=== PATIENT | male | born 1950 | race African-American/Black ===

== ENCOUNTER 2016-10-30 07:49 | Outpatient (CLI) | payer MEDICARE, OTHER ==
[2016-10-30 11:10] LABS: ALT (SGPT) 16 U/L (0-55); AST (SGOT) 11 U/L (5-34); Albumin 4.6 g/dL (3.4-4.8); Alkaline Phosphatase 87 U/L (40-150); Anion Gap 17 mmol/L (10-20); BUN (Urea Nitrogen) 22 mg/dL (8.4-25.7); Bilirubin, Total 0.3 mg/dL (0.2-1.2); Calc. Creatinine Clearance 0 mL/min (70-130); Calcium 9.4 mg/dL (7.8-10.44); Carbon Dioxide 20 mmol/L (23-31); Cardiac Risk 6.6 (Less than 4.5); Chloride 108 mmol/L (98-107); Cholesterol 152 mg/dL (< 200 Desired); Estimated GFR-MDRD 70; Globulin 2.7 g/dL (2.4-3.5); Glucose 151 mg/dL (80-115); HDL Cholesterol 23 mg/dL (>60 Neg Risk); LDL Cholesterol, Calculated 86 mg/dL; Protein, Total 7.3 g/dL (5.8-8.1); Sodium 141 mmol/L (136-145); Triglycerides 216 mg/dL (Less than 150); Uric Acid 8.3 mg/dL (3.5-7.2)
== END 2016-10-30 07:50 ==
LOC: MADLABBHPM 07:49
PROVIDERS: ATTEND Family Medicine
DX: E78.2 Mixed hyperlipidemia (principal); M10.00 Idiopathic gout, unspecified site; I10 Essential (primary) hypertension
CPT/HCPCS: 36415; 80053; 80061; 84550

== ENCOUNTER 2017-02-01 09:16 | Outpatient (CLI) | payer MEDICARE ==
[2017-02-01 10:22] LABS: ALT (SGPT) 19 U/L (8-55); AST (SGOT) 15 U/L (5-34); Albumin 4.3 g/dL (3.4-4.8); Alkaline Phosphatase 100 U/L (40-150); Anion Gap 16 mmol/L (10-20); BUN (Urea Nitrogen) 16 mg/dL (8.4-25.7); Bilirubin, Total 0.3 mg/dL (0.2-1.2); Calc. Creatinine Clearance 0 mL/min (70-130); Calcium 9.8 mg/dL (7.8-10.44); Carbon Dioxide 22 mmol/L (23-31); Cardiac Risk 6.3 (Less than 4.5); Chloride 107 mmol/L (98-107); Cholesterol 150 mg/dl (< 200 Desired); Estimated GFR-MDRD 79; Globulin 3.3 g/dL (2.4-3.5); Glucose 166 mg/dL (80-115); HDL Cholesterol 24 mg/dL (>60 Neg Risk); LDL Cholesterol, Calculated 74 mg/dL; Magnesium 1.8 mg/dL (1.6-2.6); Potassium 3.9 mmol/L (3.5-5.1); Protein, Total 7.6 g/dL (5.8-8.1); Sodium 141 mmol/L (136-145); Triglycerides 260 mg/dL (Less than 150)
== END 2017-02-01 09:17 | disposition home or self-care (01) ==
LOC: MADLABBHPM 09:16
PROVIDERS: ATTEND Family Medicine
DX: E78.2 Mixed hyperlipidemia (principal); E83.42 Hypomagnesemia
CPT/HCPCS: 36415; 80053; 80061; 83735; 84550

== ENCOUNTER 2017-07-10 00:09 | Emergency (ER) | payer MEDICARE ==
[2017-07-10] MEDS ORDERED: Nitroglycerin 0.4 MG TAB 1 EACH ONE (00:32)
[2017-07-10] MEDS ORDERED: Aspirin 325 MG TAB ONE (00:32)
[2017-07-10 00:52] LABS: PTT 25.3 SEC (22.9-36.1); Prothrombin Time 13.4 SEC (12.0-14.7)
[2017-07-10 01:08] LABS: CKMB 1.9 ng/mL (0-6.6); Troponin I Less than 0.010 ng/mL (< 0.028)
[2017-07-10 01:09] LABS: ALT (SGPT) 17 U/L (8-55); AST (SGOT) 15 U/L (5-34); Albumin 4.5 g/dL (3.4-4.8); Alkaline Phosphatase 130 U/L (40-150); Anion Gap 22 mmol/L (10-20); BUN (Urea Nitrogen) 17 mg/dL (8.4-25.7); Bilirubin, Total 0.2 mg/dL (0.2-1.2); CK (CPK) 231 U/L (30-200); Calc. Creatinine Clearance 0 mL/min (70-130); Calcium 9.3 mg/dL (7.8-10.44); Carbon Dioxide 18 mmol/L (23-31); Chloride 106 mmol/L (98-107); Estimated GFR-MDRD 71; Globulin 3.3 g/dL (2.4-3.5); Glucose 221 mg/dL (80-115); Magnesium 2.2 mg/dL (1.6-2.6); Potassium 4.4 mmol/L (3.5-5.1); Protein, Total 7.8 g/dL (5.8-8.1); Sodium 142 mmol/L (136-145)
[2017-07-10 01:24] LABS: #Basophils 0.1 thou/uL (0.0-0.2); #Eosinphils 0.2 thou/uL (0.0-0.7); #Lymphocytes 2.4 thou/uL (1.20-3.40); #Monocytes 0.6 thou/uL (0.11-0.59); #Neutrophils 3.2 thou/uL (1.40-6.50); %Eosinophils 3.1 % (0.0-10.0); %Lymphocytes 36.3 % (21.0-51.0); %Monocytes 8.9 % (0.0-10.0); %Neutrophils 49.7 % (42.0-75.0); Anisocytosis SLIGHT = 6-15 cells (100X) (0-5/hpf); Hemoglobin 14.5 g/dL (14.0-18.0); Hypochromia SLIGHT = 6-15 cells (100X) (0-5/hpf); MDiff Complete? YES; Mean Corpuscular HGB CONC 31.1 g/dL (32.0-36.0); Mean Corpuscular Hemoglobin 23.9 pg (27.0-31.0); Mean Corpuscular Volume 76.9 fl (80.0-94.0); Mean Platelet Volume 10.2 fL (7.4-10.4); Microcytosis SLIGHT = 6-15 cells (100X) (0-5/hpf); PLT Morphology Comment Appears Adequate; Platelet Count 230 thou/uL (130-400); Poikilocytosis SLIGHT = 6-15 cells (100X) (0-5/hpf); RBC Distribution Width 15.7 % (11.5-14.5); RBC Morphology Abnormal; Red Blood Cell (RBC) Count 6.05 mill/uL (4.70-6.10); White Blood Cell (WBC) Count 6.5 thou/uL (4.8-10.8)
--- NOTE | 2017-07-10 07:50 | RAD ---
CHEST 1 VIEW: Date: 07/10/17 HISTORY: Dyspnea. Follow-up. COMPARISON: 07/18/15. FINDINGS: Cardiac silhouette is magnified and enlarged. Pulmonary vasculature remains engorged with patchy bila teral perihilar and bibasilar infiltrates. Mediastinum is midline. Upper lobes are clear. No evidence of pneumothorax. IMPRESSION: Radiographic appearance of CHF is similar in appearance to the prior exam. POS: [facility]
== END 2017-07-10 01:45 | disposition short-term general hospital (02) ==
LOC: MADERS 00:09
DX: I20.0 Unstable angina (principal); E11.9 Type 2 diabetes mellitus without complications; I10 Essential (primary) hypertension; J44.9 Chronic obstructive pulmonary disease, unspecified; E78.5 Hyperlipidemia, unspecified; Z79.4 Long term (current) use of insulin; Z79.899 Other long term (current) drug therapy; Z86.73 Personal history of transient ischemic attack (TIA), and cerebral infarction without residual deficits
CPT/HCPCS: 71045; 80053; 82550; 82553; 83735; 83880; 84484; 85025; 85610; 85730; 93005; 94760

== ENCOUNTER 2017-11-09 17:39 | Emergency (ER) | payer MEDICARE | END 2017-11-09 20:21 | disposition home or self-care (01) | LOC: MADERS 17:39 | DX: J30.1 Allergic rhinitis due to pollen (principal); G47.30 Sleep apnea, unspecified; E11.9 Type 2 diabetes mellitus without complications; E78.5 Hyperlipidemia, unspecified; I10 Essential (primary) hypertension; J44.9 Chronic obstructive pulmonary disease, unspecified; Z86.73 Personal history of transient ischemic attack (TIA), and cerebral infarction without residual deficits; Z79.02 Long term (current) use of antithrombotics/antiplatelets; Z79.82 Long term (current) use of aspirin; Z79.899 Other long term (current) drug therapy; Z79.84 Long term (current) use of oral hypoglycemic drugs | CPT/HCPCS: 96372; J1040 ==

== ENCOUNTER 2017-12-16 17:35 | Emergency (ER) | payer MEDICARE ==
[2017-12-16] MEDS ORDERED: Benzonatate 100 MG CAP ONE (18:05)
[2017-12-16] MEDS ORDERED: Amoxicillin/Potassium Clav 875 MG TAB ONE (18:05)
[2017-12-16] MEDS ORDERED: Dexamethasone 4 MG TAB ONE (18:05)
[2017-12-16] MEDS ORDERED: Dexamethasone 4 mg/ml Vial ONE (18:05)
--- NOTE | 2017-12-16 18:28 | RAD ---
CHEST TWO VIEWS: 12/16/2017 HISTORY: Cough. COMPARISON: 07/09/2012 FINDINGS: There is mild pulmonary vascular congestion and interstitial prominence, similar when compared to the prior exam. There is no pneumothorax or pleural fluid, and no focal consolidation or alveolar edema . The cardiac silhouette demonstrates stable prominence. IMPRESSION: No significant interval change. POS: [facility]
== END 2017-12-16 18:30 | disposition home or self-care (01) ==
LOC: MADERS 17:35
DX: J04.10 Acute tracheitis without obstruction (principal); E11.9 Type 2 diabetes mellitus without complications; E78.5 Hyperlipidemia, unspecified; I10 Essential (primary) hypertension; Z86.73 Personal history of transient ischemic attack (TIA), and cerebral infarction without residual deficits; J44.9 Chronic obstructive pulmonary disease, unspecified; Z79.899 Other long term (current) drug therapy; Z79.84 Long term (current) use of oral hypoglycemic drugs
CPT/HCPCS: 71046; J1100; J8540

== ENCOUNTER 2018-02-18 12:31 | Outpatient (CLI) | payer MEDICARE ==
[2018-02-18 13:51] LABS: ALT (SGPT) 16 U/L (8-55); AST (SGOT) 15 U/L (5-34); Albumin 4.6 g/dL (3.4-4.8); Alkaline Phosphatase 116 U/L (40-150); Anion Gap 16 mmol/L (10-20); BUN (Urea Nitrogen) 18 mg/dL (8.4-25.7); Bilirubin, Total 0.4 mg/dL (0.2-1.2); Calc. Creatinine Clearance 0 mL/min (70-130); Calcium 9.6 mg/dL (7.8-10.44); Carbon Dioxide 21 mmol/L (23-31); Cardiac Risk 4.9 (Less than 4.5); Chloride 109 mmol/L (98-107); Cholesterol 113 mg/dl (< 200 Desired); Estimated GFR-MDRD 79; Globulin 2.6 g/dL (2.4-3.5); Glucose 164 mg/dL (80-115); HDL Cholesterol 23 mg/dL (>60 Neg Risk); LDL Cholesterol, Calculated 57 mg/dL; Magnesium 2.3 mg/dL (1.6-2.6); Potassium 3.9 mmol/L (3.5-5.1); Protein, Total 7.2 g/dL (5.8-8.1); Sodium 142 mmol/L (136-145); Triglycerides 166 mg/dL (Less than 150); Uric Acid 7.4 mg/dL (3.5-7.2)
[2018-02-18 17:42] LABS: Free T4 (Free Thyroxine) 1.1 ng/dL (0.70-1.48)
== END 2018-02-18 12:32 | disposition home or self-care (01) ==
LOC: MADLABBHPM 12:31
PROVIDERS: ATTEND Family Medicine
DX: E78.2 Mixed hyperlipidemia (principal); I10 Essential (primary) hypertension; E79.0 Hyperuricemia without signs of inflammatory arthritis and tophaceous disease; E83.42 Hypomagnesemia
CPT/HCPCS: 36415; 80053; 80061; 83735; 84439; 84443; 84550

== ENCOUNTER 2018-02-24 14:43 | Emergency (ER) | payer MEDICARE ==
[2018-02-24] MEDS ORDERED: Benzonatate 100 MG CAP ONE (15:35)
[2018-02-24] MEDS ORDERED: Dexamethasone 4 MG TAB ONE (15:35)
== END 2018-02-24 16:00 | disposition home or self-care (01) ==
LOC: MADERS 14:43
DX: T78.40XA Allergy, unspecified, initial encounter (principal); R05 Cough; E11.9 Type 2 diabetes mellitus without complications; I10 Essential (primary) hypertension; I25.10 Atherosclerotic heart disease of native coronary artery without angina pectoris; E78.5 Hyperlipidemia, unspecified; J44.9 Chronic obstructive pulmonary disease, unspecified; G47.30 Sleep apnea, unspecified; Z86.73 Personal history of transient ischemic attack (TIA), and cerebral infarction without residual deficits; Z79.84 Long term (current) use of oral hypoglycemic drugs; Z79.899 Other long term (current) drug therapy; Z79.891 Long term (current) use of opiate analgesic
CPT/HCPCS: 99283; J8540

== ENCOUNTER 2018-03-01 14:51 | Emergency (ER) | payer MEDICARE ==
[2018-03-01] MEDS ORDERED: Phenergan/Codeine 10-6.25mg/5ml UDCUP ONE (15:17)
[2018-03-01] MEDS ORDERED: methylPREDNISolone Sod Succ/PF 125 MG/2 ML VIAL ONE (15:17)
[2018-03-01] MEDS ORDERED: Benzonatate 100 MG CAP ONE (15:17)
[2018-03-01] MEDS ORDERED: Sterile Water 10 ML ONE (15:18)
[2018-03-01] MEDS ORDERED: Amoxicillin/Potassium Clav 875 MG TAB ONE (15:32)
--- NOTE | 2018-03-01 15:41 | RAD ---
PORTABLE AP CHEST X-RAY 03/01/18 HISTORY: Cough. COMPARISON: 07/10/17. FINDINGS: The cardiac silhouette is magnified by projection but is stable in size from prior study. Pulmonary v asculature does appear to be within normal limits. Due to overlying soft tissue density, the left josefa g base is not well evaluated, but the lungs are otherwise clear. No other interval change. IMPRESSION: Suboptimal evaluation left lung base, but there is otherwise no acute cardiopulmonary process. POS: [facility]
== END 2018-03-01 15:39 | disposition home or self-care (01) ==
LOC: MADERS 14:51
DX: J20.9 Acute bronchitis, unspecified (principal); G47.30 Sleep apnea, unspecified; E78.5 Hyperlipidemia, unspecified; I10 Essential (primary) hypertension; J44.9 Chronic obstructive pulmonary disease, unspecified; Z86.73 Personal history of transient ischemic attack (TIA), and cerebral infarction without residual deficits; Z79.891 Long term (current) use of opiate analgesic; Z79.899 Other long term (current) drug therapy
CPT/HCPCS: 71045; 96372; A4216; J2930

== ENCOUNTER 2018-04-24 13:02 | Emergency (ER) | payer MEDICARE | END 2018-04-24 13:45 | disposition home or self-care (01) | LOC: MADERS 13:02 | DX: J45.909 Unspecified asthma, uncomplicated (principal); E11.9 Type 2 diabetes mellitus without complications; E78.5 Hyperlipidemia, unspecified; J44.9 Chronic obstructive pulmonary disease, unspecified; I10 Essential (primary) hypertension; Z86.73 Personal history of transient ischemic attack (TIA), and cerebral infarction without residual deficits; Z79.891 Long term (current) use of opiate analgesic; Z79.899 Other long term (current) drug therapy; Z79.84 Long term (current) use of oral hypoglycemic drugs | CPT/HCPCS: 96372; J1040 ==

== ENCOUNTER 2018-08-11 16:04 | Emergency (ER) | payer MEDICARE ==
[2018-08-11] MEDS ORDERED: predniSONE 20 MG TAB ONE (17:37)
--- NOTE | 2018-08-11 18:17 | RAD ---
RADHA ONE VIEW: History: Cough. Comparison: 03-01-18 FINDINGS: Lungs are mildly hypoinflated. Increased pericardial fat along the left hemithorax. No pneumothorax. No significant effusion. No acute osseous abnormality. IMPRESSION: Mild lung hypoinflation. No acute thoracic abnormality. POS: [facility]
== END 2018-08-11 17:44 | disposition home or self-care (01) ==
LOC: MADERS 16:04
DX: J45.901 Unspecified asthma with (acute) exacerbation (principal); J06.9 Acute upper respiratory infection, unspecified; G47.30 Sleep apnea, unspecified; E78.5 Hyperlipidemia, unspecified; I10 Essential (primary) hypertension; J44.9 Chronic obstructive pulmonary disease, unspecified; E11.9 Type 2 diabetes mellitus without complications; Z79.82 Long term (current) use of aspirin; Z86.73 Personal history of transient ischemic attack (TIA), and cerebral infarction without residual deficits; Z79.899 Other long term (current) drug therapy; Z79.891 Long term (current) use of opiate analgesic; Z79.51 Long term (current) use of inhaled steroids
CPT/HCPCS: 71045; 87804; 93005; J7506; J7620

== ENCOUNTER 2018-12-28 11:32 | Emergency (ER) | payer MEDICARE ==
--- NOTE | 2018-12-28 11:59 | RAD ---
XR Chest Pa Lat STANDARD HISTORY: Cough COMPARISON: 12/16/2017 study FINDINGS: Heart size appears slightly enlarged. No infiltrative process or signs of failure. IMPRESSION: Mild cardiomegaly. Stable chest.
== END 2018-12-28 12:20 | disposition home or self-care (01) ==
LOC: MADERS 11:32
DX: J06.9 Acute upper respiratory infection, unspecified (principal); E11.9 Type 2 diabetes mellitus without complications; E78.5 Hyperlipidemia, unspecified; G47.30 Sleep apnea, unspecified; I10 Essential (primary) hypertension; Z86.73 Personal history of transient ischemic attack (TIA), and cerebral infarction without residual deficits; J44.9 Chronic obstructive pulmonary disease, unspecified; Z79.82 Long term (current) use of aspirin; Z79.899 Other long term (current) drug therapy; Z79.51 Long term (current) use of inhaled steroids
CPT/HCPCS: 71046

== ENCOUNTER 2019-03-05 13:19 | Emergency (ER) | payer MEDICARE ==
[2019-03-05] MEDS ORDERED: predniSONE 20 MG TAB ONE (13:41)
== END 2019-03-05 13:52 | disposition home or self-care (01) ==
LOC: MADERS 13:19
DX: M10.9 Gout, unspecified (principal); E11.9 Type 2 diabetes mellitus without complications; I10 Essential (primary) hypertension; G47.30 Sleep apnea, unspecified; E78.5 Hyperlipidemia, unspecified; J44.9 Chronic obstructive pulmonary disease, unspecified; Z86.73 Personal history of transient ischemic attack (TIA), and cerebral infarction without residual deficits
CPT/HCPCS: 99283; J7512

== ENCOUNTER 2019-03-08 08:21 | Outpatient (CLI) | payer MEDICARE ==
[2019-03-08 09:22] LABS: ALT (SGPT) 10 U/L (8-55); AST (SGOT) 8 U/L (5-34); Albumin 4.4 g/dL (3.4-4.8); Alkaline Phosphatase 98 U/L (40-150); Anion Gap 17 mmol/L (10-20); BUN (Urea Nitrogen) 30 mg/dL (8.4-25.7); Bilirubin, Total 0.2 mg/dL (0.2-1.2); Calc. Creatinine Clearance 0 mL/min (70-130); Calcium 9.2 mg/dL (7.8-10.44); Carbon Dioxide 21 mmol/L (23-31); Cardiac Risk 4.6 (Less than 4.5); Chloride 109 mmol/L (98-107); Cholesterol 125 mg/dl (< 200 Desired); Estimated GFR-MDRD 79; Globulin 3.2 g/dL (2.4-3.5); Glucose 149 mg/dL (80-115); HDL Cholesterol 27 mg/dL (>60 Neg Risk); LDL Cholesterol, Calculated 54 mg/dL; Magnesium 2.2 mg/dL (1.6-2.6); Potassium 3.6 mmol/L (3.5-5.1); Protein, Total 7.6 g/dL (5.8-8.1); Sodium 143 mmol/L (136-145); Triglycerides 221 mg/dL (Less than 150); Uric Acid 8.8 mg/dL (3.5-7.2)
[2019-03-08 14:52] LABS: Hemoglobin A1c 7.4 % (4.0-6.0)
[2019-03-08 15:13] LABS: Free T4 (Free Thyroxine) 0.99 ng/dL (0.70-1.48)
[2019-03-08 16:09] LABS: Creatinine, Urine 35.46 mg/dL (63-166); Microalbumin Urine 5.6 mg/dL (0.5-50.0); Microalbumin/Creat Ratio 157.9 mg/g (Less than 30)
== END 2019-03-08 08:22 | disposition home or self-care (01) ==
LOC: MADLAB 08:21
PROVIDERS: ATTEND Family Medicine
DX: E78.2 Mixed hyperlipidemia (principal); E79.0 Hyperuricemia without signs of inflammatory arthritis and tophaceous disease; E83.42 Hypomagnesemia; I10 Essential (primary) hypertension; E11.65 Type 2 diabetes mellitus with hyperglycemia
CPT/HCPCS: 36415; 80053; 80061; 82043; 83036; 83735; 84439; 84443; 84550

== ENCOUNTER 2019-04-11 13:03 | Emergency (ER) | payer MEDICARE ==
[2019-04-11] MEDS ORDERED: predniSONE 20 MG TAB ONE (13:40)
== END 2019-04-11 13:44 | disposition home or self-care (01) ==
LOC: MADERS 13:03
DX: T78.40XA Allergy, unspecified, initial encounter (principal); I10 Essential (primary) hypertension; E78.5 Hyperlipidemia, unspecified; J44.9 Chronic obstructive pulmonary disease, unspecified; G47.30 Sleep apnea, unspecified; Z79.899 Other long term (current) drug therapy; Z79.51 Long term (current) use of inhaled steroids; Z79.82 Long term (current) use of aspirin; Z86.73 Personal history of transient ischemic attack (TIA), and cerebral infarction without residual deficits
CPT/HCPCS: 99283; J7512

== ENCOUNTER 2019-06-17 12:27 | Outpatient (CLI) | payer MEDICARE ==
--- NOTE | 2019-06-17 13:23 | RAD ---
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 FINDINGS: There are some osteoarthrosis changes of the hand, including the second metatarsophalangeal joint and several interphalangeal joints. No evidence for acute fracture or dislocation. IMPRESSION: Osteoarthrosis changes. No fracture or dislocation. POS: [facility]
== END 2019-06-17 12:28 | disposition home or self-care (01) ==
LOC: MADRAD 12:27
PROVIDERS: ATTEND Family Medicine
DX: M19.041 Primary osteoarthritis, right hand (principal); M65.341 Trigger finger, right ring finger

== ENCOUNTER 2019-08-14 18:19 | Emergency (ER) | payer MEDICARE | END 2019-08-14 19:15 | disposition home or self-care (01) | LOC: MADERS 18:19 | DX: J44.9 Chronic obstructive pulmonary disease, unspecified (principal); J06.9 Acute upper respiratory infection, unspecified; G47.30 Sleep apnea, unspecified; I10 Essential (primary) hypertension; E11.9 Type 2 diabetes mellitus without complications; E78.5 Hyperlipidemia, unspecified; Z86.73 Personal history of transient ischemic attack (TIA), and cerebral infarction without residual deficits; Z79.899 Other long term (current) drug therapy; Z79.02 Long term (current) use of antithrombotics/antiplatelets; Z79.84 Long term (current) use of oral hypoglycemic drugs | CPT/HCPCS: 94640; J7620 ==

== ENCOUNTER 2020-01-20 11:58 | Emergency (ER) | payer MEDICARE ==
[~2020-01-20 11:58] MED LIST: Iopamidol 370 76% 100 ML VIAL ONE; Sodium Chloride 0.9% 1,000 ML BAG ONE
[2020-01-20] MEDS ORDERED: Ondansetron PF 4 MG/2 ML Vial ONE (12:48)
[2020-01-20] MEDS ORDERED: Morphine 4 MG/ML VIAL ONE (12:48)
[2020-01-20 13:15] LABS: Eosinophils 4 % (0-10); Hemoglobin 12.2 g/dL (14.0-18.0); Lymphocytes 6 % (21-51); MDiff Complete? YES; Mean Corpuscular Hemoglobin 19.2 pg (27.0-31.0); Mean Corpuscular Volume 68.6 fL (78.0-98.0); Mean Platelet Volume 7.8 fL (7.4-10.4); Microcytosis SLIGHT = 6-15 cells (100X) (0-5/hpf); Monocytes 4 % (0-10); Neutrophil 79 % (42-75); Platelet Count 480 thou/uL (130-400); Platelet Morphology Comment Appears Increased; Polychromasia SLIGHT = 2-3 cells (100X) (0-2/hpf); RBC Distribution Width 15.8 % (11.5-14.5); Reactive Lymphocytes 7 % (0-10); Red Blood Cell (RBC) Count 6.39 mill/uL (4.70-6.10); Target Cells SLIGHT = 2-5 cells (100X) (0-1/hpf); White Blood Cell (WBC) Count 19.9 thou/uL (4.8-10.8)
[2020-01-20 13:16] LABS: ALT (SGPT) 11 U/L (8-55); AST (SGOT) 11 U/L (5-34); Albumin 4.1 g/dL (3.4-4.8); Alkaline Phosphatase 113 U/L (40-110); Anion Gap 19 mmol/L (10-20); BUN (Urea Nitrogen) 14 mg/dL (8.4-25.7); Bilirubin, Total 0.3 mg/dL (0.2-1.2); Calc. Creatinine Clearance 0 mL/min (70-130); Calcium 9.2 mg/dL (7.8-10.44); Carbon Dioxide 20 mmol/L (23-31); Chloride 103 mmol/L (98-107); Estimated GFR-MDRD 74; Globulin 3.7 g/dL (2.4-3.5); Glucose 107 mg/dL (83-110); Lipase 7 U/L (8-78); Potassium 4.2 mmol/L (3.5-5.1); Protein, Total 7.8 g/dL (5.8-8.1); Sodium 138 mmol/L (136-145)
[2020-01-20 13:34] LABS: CKMB 0.8 ng/mL (0-6.6)
[2020-01-20 14:03] LABS: Bilirubin Small (Negative); Blood, Urine Trace (Negative); Clarity Clear (Clear); Glucose, Urine (Dipstick) >=1000 mg/dL (Negative); Ketone, Urine 40 mg/dL (Negative); Leukocyte Negative (Negative); Nitrite Negative (Negative); Protein, Urine (Dipstick) Negative (Neg-Trace); Specific Gravity, Urine 1.015 (1.005-1.030); Urobilinogen 0.2 mg/dL (Less than 2); pH, Urine 5.5 (5.0-9.0)
[2020-01-20 14:06] LABS: Bacteria/HPF Rare-Few HPF (None Seen); RBC/HPF 0-3 HPF (0-3); Squamous Epithelial 0-3 HPF (0-3); WBC/HPF 0-3 HPF (0-3)
--- NOTE | 2020-01-20 16:23 | CT ---
CT ABDOMEN AND PELVIS WITH CONTRAST: 01/20/20 INDICATION: Epigastric pain. COMPARISON: Comparison made to a CT chest of 07/18/15 which did include images through the upper abdomen. FINDINGS: Images through the lung bases today reveal a large mass in the right posterior lung which is incomple tely evaluated today. It measures 5 to 6 cm but is only partially imaged. This appears to represent a new finding when compared to CT chest of 07/18/15. There are new lesions seen in the liver today which are concerning for metastatic disease to the live r. There are two lesions seen in the superior left lobe of the liver along the superior liver margin, each measuring 3 to 4 cm. The spleen and pancreas unremarkable. Stomach and duodenum unremarkable. There are bilateral adrenal masses which would be concerning for bilateral adrenal metastasis. The ri ght adrenal mass measures up to 3.8 cm in axial plane and the left adrenal mass measures up to 4.5 cm in axial plane. There are bilateral renal cystic lesions which appear benign. There is a calculus in the lower pole collecting structures of the left kidney which measures 2.0 cm in the coronal plane. No hydronephrosis. Review of the intestinal tract shows normal caliber proximal small bowel. There is mild distention of mid small bowel loops in the lower abdomen. There is a filling defect seen within one of these diste nded loops of bowel in the right abdomen, probably mid to distal jejunum. This is best appreciated on coronal image 61. This filling defect measures approximately 1.6 cm. There is evidence of another filling defect in a small bowel loop in the right upper quadrant seen be st on coronal image 38 of 162. This measures approximately 1.8 cm. Follow-up small bowel exam is tammy mmended. Images through the pelvis show unremarkable bladder. There is mild prostatic hypertrophy. Osseous str uctures show prominent degenerative disc changes at L4-5 with foraminal stenosis bilaterally at this level. Postop changes are seen posteriorly at this level. IMPRESSION: 1. Evidence of a new mass in the right mid lung which is incompletely evaluated on this CT abdom en and pelvis. Recommend dedicated CT chest. 2. Evidence of new liver lesions in the left lobe of the liver, which are concerning for metasta tic disease. 3. Bilateral adrenal masses which would be concerning for metastatic disease. 4. Question two separate filling defects seen in small bowel as described above. Recommend GI co nsultation and follow-up. 5. Nonobstructing calculus in the lower pole collecting structures of the left kidney. 6. Bilateral renal cystic lesions. POS: [facility]
--- NOTE | 2020-01-20 17:35 | CT ---
CT CHEST WITH CONTRAST CLINICAL INDICATION: Nausea and vomiting. Right lung mass. COMPARISON: CT abdomen on 01/20/2020 FINDINGS: Aorta: Vascular calcifications are seen in the thoracic aorta. Lungs: As noted on CT of the abdomen, there is a large mass in the posterior aspect left upper lobe w hich measures 6.5 cm transverse x6.3 cm craniocaudal x6.3 cm AP. A closely adjacent pleural-based heterogeneous nodule posteromedial right upper lobe is seen which measures 2.4 cm. There is also a pl eural-based nodule seen in the anterolateral right lung apex measuring 2 cm. These pleural-based nodules as well as large right upper lobe lung mass demonstrate low density areas centrally suggestin g necrosis. There is a pulmonary nodule at the left lung base measuring approximately 1.6 cm. However, given narayan on artifact in this region on accurate measurement is difficult to determine. No pleural effusion is present. Mediastinum: There is a large right paratracheal low density masslike structure likely due to an enla rged lymph node versus conglomeration of enlarged lymph nodes. This measures 6.3 cm craniocaudal x3.5 cm AP x3.7 cm transverse. Additional mildly enlarged mediastinal lymph nodes are seen including an enlarged subcarinal lymph node measuring 2.1 cm. There is a masslike structure interposed between the ascending thoracic aorta and the right main pulm onary artery which measures 4 cm x 1.9 cm. There is a filling defect seen within the SVC at the level of this mass which appears to represent direct extension of the lesion into the SVC and related to tumor thrombus. This results in severe luminal narrowing of the SVC at this level. There is a small pericardial nodule anteriorly measuring 1.7 cm likely due to metastatic lesion invol ving the pericardium. Thyroid gland: An approximately 9 mm nodule is seen in the right lobe of the thyroid gland. Osseous structures: No lytic or sclerotic osseous lesions are seen. Chest wall: No abnormality visualized. Upper abdomen: As noted on CT scan of the abdomen, there are low-density adrenal masses concerning fo r metastatic lesions as well as hypodense lesion seen in the left hepatic lobe. Incompletely imaged hypodense lesions in each kidney are present likely due to renal cysts. IMPRESSION: 1. Evidence of metastatic disease with large right upper lobe mass as well as additional pleural-base d nodules in the right upper lobe and left lung base. Mediastinal and right hilar lymphadenopathy is present with a metastatic lesion involving the pericardium. Metastatic lesions are also seen invol ving the liver and each adrenal gland. These metastatic lesions and lymphadenopathy demonstrate low density centrally suggesting necrosis. 2. 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 3. Above findings discussed with Dr. Kerr in the emergency department on 01/20/2020 at 1727 hours.
== END 2020-01-20 17:36 | disposition short-term general hospital (02) ==
LOC: MADERS 11:58
DX: R10.13 Epigastric pain (principal); R19.06 Epigastric swelling, mass or lump; E78.5 Hyperlipidemia, unspecified; Z86.73 Personal history of transient ischemic attack (TIA), and cerebral infarction without residual deficits; Z87.891 Personal history of nicotine dependence; Z79.899 Other long term (current) drug therapy; Z79.82 Long term (current) use of aspirin; Z79.84 Long term (current) use of oral hypoglycemic drugs
CPT/HCPCS: 71260; 74177; 80053; 81003; 81015; 82553; 83605; 83690; 84484; 85025; 86140; 93005; 96361; 96374; 96375; J2270; J2405; J7050; Q9967

== ENCOUNTER 2020-08-22 15:06 | Emergency (ER) | payer MEDICARE ==
[2020-08-22 16:04] LABS: Bilirubin Negative (Negative); Blood, Urine Negative (Negative); Clarity Clear (Clear); Glucose, Urine (Dipstick) >=1000 mg/dL (Negative); Ketone, Urine Negative (Negative); Leukocyte Negative (Negative); Nitrite Negative (Negative); Protein, Urine (Dipstick) Negative (Neg-Trace); Specific Gravity, Urine 1.018 (1.002-1.036); Urobilinogen 0.2 mg/dL (Less than 2); pH, Urine 5.5 (5.0-9.0)
== END 2020-08-22 16:20 | disposition short-term general hospital (02) ==
LOC: MADERS 15:06
DX: N50.89 Other specified disorders of the male genital organs (principal); E11.9 Type 2 diabetes mellitus without complications; E78.5 Hyperlipidemia, unspecified; I10 Essential (primary) hypertension; J44.9 Chronic obstructive pulmonary disease, unspecified; Z87.891 Personal history of nicotine dependence; Z79.899 Other long term (current) drug therapy
CPT/HCPCS: 81003; 99284

== ENCOUNTER 2020-11-19 04:14 | Emergency (ER) | payer MEDICARE | END 2020-11-19 05:13 | disposition home or self-care (01) | LOC: MADERS 04:14 | DX: J06.9 Acute upper respiratory infection, unspecified (principal); R59.9 Enlarged lymph nodes, unspecified; C34.92 Malignant neoplasm of unspecified part of left bronchus or lung; G47.30 Sleep apnea, unspecified; E11.9 Type 2 diabetes mellitus without complications; E78.5 Hyperlipidemia, unspecified; I10 Essential (primary) hypertension; Z86.73 Personal history of transient ischemic attack (TIA), and cerebral infarction without residual deficits; Z87.891 Personal history of nicotine dependence; Z79.82 Long term (current) use of aspirin; Z79.899 Other long term (current) drug therapy | CPT/HCPCS: 99283 ==

== ENCOUNTER 2021-05-20 11:52 | Emergency (ER) | payer MEDICARE ==
[2021-05-20 13:49] LABS: ALT (SGPT) 30 U/L (8-55); AST (SGOT) 19 U/L (5-34); Albumin 3.8 g/dL (3.4-4.8); Alkaline Phosphatase 82 U/L (40-110); Anion Gap 18 mmol/L (10-20); BUN (Urea Nitrogen) 7 mg/dL (8.4-25.7); Bilirubin, Total 0.7 mg/dL (0.2-1.2); Calc. Creatinine Clearance 0 mL/min (70-130); Calcium 9.2 mg/dL (7.8-10.44); Carbon Dioxide 20 mmol/L (23-31); Chloride 103 mmol/L (98-107); Globulin 3.3 g/dL (2.4-3.5); Glucose 142 mg/dL (83-110); Lipase 16 U/L (8-78); Potassium 3.3 mmol/L (3.5-5.1); Protein, Total 7.1 g/dL (5.8-8.1); Sodium 138 mmol/L (136-145)
[2021-05-20 13:57] LABS: Band 2 % (5-11); Hemoglobin 12.1 g/dL (14.0-18.0); Lymphocytes 6 % (21-51); MDiff Complete? YES; Mean Corpuscular HGB CONC 30.2 g/dL (32.0-36.0); Mean Corpuscular Hemoglobin 24.2 pg (27.0-31.0); Mean Corpuscular Volume 80.1 fL (78.0-98.0); Mean Platelet Volume 6.9 fL (7.4-10.4); Metamyelocyte 2 % (0-0); Monocytes 13 % (0-10); Neutrophil 62 % (42-75); Platelet Count 190 thou/uL (130-400); Platelet Morphology Comment Appears Adequate; Polychromasia SLIGHT = 2-3 cells (100X) (0-2/hpf); RBC Distribution Width 15.8 % (11.5-14.5); Reactive Lymphocytes 15 % (0-10); White Blood Cell (WBC) Count 2.8 thou/uL (4.8-10.8)
[2021-05-20 14:06] LABS: Clarity Clear (Clear); Leukocyte Negative (Negative); Nitrite Negative (Negative); Protein, Urine (Dipstick) Negative (Neg-Trace); pH, Urine 5.5 (5.0-9.0)
[2021-05-20 14:07] LABS: Bacteria/HPF Rare-Few HPF (None Seen); Bilirubin Negative (Negative); Blood, Urine Small (Negative); Glucose, Urine (Dipstick) >=1000 mg/dL (Negative); Ketone, Urine Negative (Negative); RBC/HPF 0-3 HPF (0-3); Squamous Epithelial 0-3 HPF (0-3); WBC/HPF 0-3 HPF (0-3)
== END 2021-05-20 16:00 | disposition home or self-care (01) ==
LOC: MADERS 11:52
DX: R13.10 Dysphagia, unspecified (principal); R53.1 Weakness; I10 Essential (primary) hypertension; E11.9 Type 2 diabetes mellitus without complications; E78.5 Hyperlipidemia, unspecified; J45.909 Unspecified asthma, uncomplicated; Z86.73 Personal history of transient ischemic attack (TIA), and cerebral infarction without residual deficits; F17.200 Nicotine dependence, unspecified, uncomplicated; Z79.82 Long term (current) use of aspirin; Z79.899 Other long term (current) drug therapy; Z79.84 Long term (current) use of oral hypoglycemic drugs
CPT/HCPCS: 36415; 71046; 80053; 81015; 83690; 83880; 84484; 85025; 93005

== ENCOUNTER 2021-08-17 16:14 | Emergency (ER) | payer MEDICARE | END 2021-08-17 17:40 | disposition home or self-care (01) | LOC: MADERS 16:14 | DX: E11.649 Type 2 diabetes mellitus with hypoglycemia without coma (principal); K20.80 Other esophagitis without bleeding; E78.5 Hyperlipidemia, unspecified; I10 Essential (primary) hypertension; J44.9 Chronic obstructive pulmonary disease, unspecified; C34.91 Malignant neoplasm of unspecified part of right bronchus or lung; Z86.73 Personal history of transient ischemic attack (TIA), and cerebral infarction without residual deficits; Z87.891 Personal history of nicotine dependence; G47.30 Sleep apnea, unspecified; Z79.84 Long term (current) use of oral hypoglycemic drugs | CPT/HCPCS: 36416; 99284 ==

== ENCOUNTER 2021-10-07 05:26 | Emergency (ER) | payer MEDICARE ==
[2021-10-07] MEDS ORDERED: Sodium Chloride 0.9% 100 ML BAG ONE (06:53)
[2021-10-07 06:59] LABS: Hemoglobin 10.1 g/dL (14.0-18.0); Mean Corpuscular HGB CONC 29.3 g/dL (32.0-36.0); Mean Corpuscular Hemoglobin 24.2 pg (27.0-31.0); Mean Corpuscular Volume 82.6 fL (78.0-98.0); Mean Platelet Volume 7.7 fL (7.4-10.4); Platelet Count 217 thou/uL (130-400); RBC Distribution Width 19.5 % (11.5-14.5); Red Blood Cell (RBC) Count 4.16 mill/uL (4.70-6.10); White Blood Cell (WBC) Count 6.6 thou/uL (4.8-10.8)
[2021-10-07 07:11] LABS: MDiff Complete? YES; Manual Diff?? YES
[2021-10-07 07:12] LABS: Anisocytosis SLIGHT = 6-15 cells (100X) (0-5/hpf); Eosinophils 4 % (0-10); Lymphocytes 23 % (21-51); Monocytes 9 % (0-10); Neutrophil 64 % (42-75); Platelet Morphology Comment Appears Adequate
[2021-10-07 07:17] LABS: ALT (SGPT) 12 U/L (8-55); AST (SGOT) 13 U/L (5-34); Albumin 3.3 g/dL (3.4-4.8); Alkaline Phosphatase 74 U/L (40-110); Anion Gap 17 mmol/L (10-20); BUN (Urea Nitrogen) 6 mg/dL (8.4-25.7); Bilirubin, Total 0.4 mg/dL (0.2-1.2); Calc. Creatinine Clearance 0 mL/min (70-130); Calcium 9.2 mg/dL (7.8-10.44); Carbon Dioxide 19 mmol/L (23-31); Chloride 107 mmol/L (98-107); Glucose 126 mg/dL (83-110); Potassium 4.4 mmol/L (3.5-5.1); Protein, Total 6.3 g/dL (5.8-8.1); Sodium 139 mmol/L (136-145)
[2021-10-07] MEDS ORDERED: Iopamidol 370 76% 125 ML VIAL FS ONE (13:27)
== END 2021-10-07 09:06 | disposition home or self-care (01) ==
LOC: MADERS 05:26
DX: R06.00 Dyspnea, unspecified (principal); D64.9 Anemia, unspecified; R79.1 Abnormal coagulation profile; I10 Essential (primary) hypertension; E78.5 Hyperlipidemia, unspecified; J44.9 Chronic obstructive pulmonary disease, unspecified; E11.9 Type 2 diabetes mellitus without complications; G47.30 Sleep apnea, unspecified; Z86.73 Personal history of transient ischemic attack (TIA), and cerebral infarction without residual deficits; Z79.84 Long term (current) use of oral hypoglycemic drugs; Z79.899 Other long term (current) drug therapy; Z85.118 Personal history of other malignant neoplasm of bronchus and lung
CPT/HCPCS: 36415; 71046; 71275; 80053; 83880; 85025; 85379; 93005; 94760; Q9967

== ENCOUNTER 2021-11-14 16:25 | Emergency (ER) | payer MEDICARE ==
[~2021-11-14 16:25] MED LIST changes: -Iopamidol 370 76% 100 ML VIAL ONE; +Iopamidol 370 76% 125 ML VIAL FS ONE; -Sodium Chloride 0.9% 1,000 ML BAG ONE; +Sodium Chloride 0.9% 100 ML BAG ONE
[2021-11-14] MEDS ORDERED: Aspirin Chewable 81 MG TAB ONE (16:45)
[2021-11-14] MEDS ORDERED: Mag-Al Plus 1200 MG/1200 MG/120 MG/30 ML UDCUP ONE (16:45)
[2021-11-14] MEDS ORDERED: Lidocaine Viscous Sol 2% 15 ml UD Cup ONE (16:45)
[2021-11-14] MEDS ORDERED: Nitroglycerin 0.4 MG TAB 1 EACH ONE (16:57)
[2021-11-14 18:21] LABS: ALT (SGPT) Less than 7 U/L (8-55); AST (SGOT) 13 U/L (5-34); Albumin 3.7 g/dL (3.4-4.8); Alkaline Phosphatase 61 U/L (40-110); Anion Gap 20 mmol/L (10-20); BUN (Urea Nitrogen) 23 mg/dL (8.4-25.7); Bilirubin, Total 0.4 mg/dL (0.2-1.2); Calc. Creatinine Clearance 0 mL/min (70-130); Calcium 9.3 mg/dL (7.8-10.44); Carbon Dioxide 21 mmol/L (23-31); Chloride 105 mmol/L (98-107); Globulin 2.8 g/dL (2.4-3.5); Glucose 105 mg/dL (83-110); Lipase 24 U/L (8-78); Potassium 4.2 mmol/L (3.5-5.1); Protein, Total 6.5 g/dL (5.8-8.1); Sodium 142 mmol/L (136-145)
[2021-11-14 18:56] LABS: #Eosinphils 0.1 thou/uL (0.0-0.7); #Lymphocytes 1.2 thou/uL (1.20-3.40); #Monocytes 0.1 thou/uL (0.11-0.59); #Neutrophils 7.7 thou/uL (1.40-6.50); %Basophils 0.5 % (0.0-1.0); %Eosinophils 0.8 % (0.0-10.0); %Lymphocytes 13.3 % (21.0-51.0); %Monocytes 0.8 % (0.0-10.0); %Neutrophils 84.7 % (42.0-75.0); Hypochromia SLIGHT = 6-15 cells (100X) (0-5/hpf); MDiff Complete? YES; Mean Corpuscular HGB CONC 29.6 g/dL (32.0-36.0); Mean Corpuscular Hemoglobin 23.3 pg (27.0-31.0); Mean Corpuscular Volume 78.6 fL (78.0-98.0); Mean Platelet Volume 7.8 fL (7.4-10.4); Platelet Count 366 thou/uL (130-400); Platelet Morphology Comment Appears Adequate; RBC Distribution Width 18.4 % (11.5-14.5); Red Blood Cell (RBC) Count 4.74 mill/uL (4.70-6.10); White Blood Cell (WBC) Count 9.1 thou/uL (4.8-10.8)
[2021-11-14] MEDS ORDERED: Morphine 4 MG/ML VIAL ONE (20:26)
[2021-11-14 21:48] LABS: Troponin I 0.036 ng/mL (< 0.028)
[2021-11-15 01:12] LABS: Troponin I 0.046 ng/mL (< 0.028)
== END 2021-11-15 01:53 | disposition short-term general hospital (02) ==
LOC: MADERS 16:25
DX: R77.8 Other specified abnormalities of plasma proteins (principal); I20.0 Unstable angina; C34.90 Malignant neoplasm of unspecified part of unspecified bronchus or lung; G47.30 Sleep apnea, unspecified; E11.9 Type 2 diabetes mellitus without complications; E78.5 Hyperlipidemia, unspecified; I10 Essential (primary) hypertension; Z86.73 Personal history of transient ischemic attack (TIA), and cerebral infarction without residual deficits; J44.9 Chronic obstructive pulmonary disease, unspecified; Z79.899 Other long term (current) drug therapy; Z79.02 Long term (current) use of antithrombotics/antiplatelets; Z79.84 Long term (current) use of oral hypoglycemic drugs
CPT/HCPCS: 36415; 71045; 71275; 74174; 80053; 83690; 84484; 85025; 85379; 93005; 94760; 96374; J2270; Q9967

== ENCOUNTER 2022-01-31 18:19 | Emergency (ER) | payer MEDICARE | END 2022-01-31 20:15 | disposition home or self-care (01) | LOC: MADERS 18:19 | DX: M25.561 Pain in right knee (principal); M25.562 Pain in left knee; M79.671 Pain in right foot; M79.672 Pain in left foot; M54.50 Low back pain, unspecified; M79.675 Pain in left toe(s); M79.674 Pain in right toe(s); G89.29 Other chronic pain; G62.89 Other specified polyneuropathies; I10 Essential (primary) hypertension; E11.9 Type 2 diabetes mellitus without complications; E78.5 Hyperlipidemia, unspecified; J44.9 Chronic obstructive pulmonary disease, unspecified; G47.30 Sleep apnea, unspecified; W06.XXXA Fall from bed, initial encounter; Z86.73 Personal history of transient ischemic attack (TIA), and cerebral infarction without residual deficits; Z85.118 Personal history of other malignant neoplasm of bronchus and lung; Z87.891 Personal history of nicotine dependence; Z79.899 Other long term (current) drug therapy | CPT/HCPCS: 99283 ==

== ENCOUNTER 2022-02-20 19:56 | Emergency (ER) | payer MEDICARE ==
[2022-02-20] MEDS ORDERED: Potassium Chloride 20 MEQ TAB ONE (20:20)
[2022-02-20] MEDS ORDERED: Magnesium 2 GM/50 ML BAG (IN WATER) ONE (20:21)
[2022-02-20] MEDS ORDERED: Potassium Chloride 20 MEQ/100 ML PREMIX BAG ONE (20:22)
[2022-02-20] MEDS ORDERED: NS 0.9% w/ 40 MEQ KCL 1,000 ML IV ONE (20:25)
[2022-02-20 20:41] LABS: Anion Gap 19 mmol/L (10-20); BUN (Urea Nitrogen) 6 mg/dL (8.4-25.7); Calc. Creatinine Clearance 0 mL/min (70-130); Carbon Dioxide 22 mmol/L (23-31); Chloride 103 mmol/L (98-107); Estimated GFR 75; Glucose 110 mg/dL (83-110); Magnesium 1.3 mg/dL (1.6-2.6); Sodium 141 mmol/L (136-145)
[2022-02-20 20:46] LABS: Potassium 2.5 mmol/L (3.5-5.1)
== END 2022-02-21 02:07 | disposition home or self-care (01) ==
LOC: MADERS 19:56
DX: E87.6 Hypokalemia (principal); E83.42 Hypomagnesemia; I10 Essential (primary) hypertension; E11.9 Type 2 diabetes mellitus without complications; E78.5 Hyperlipidemia, unspecified; J44.9 Chronic obstructive pulmonary disease, unspecified; G47.30 Sleep apnea, unspecified; C95.90 Leukemia, unspecified not having achieved remission; Z86.16 Personal history of COVID-19; Z87.891 Personal history of nicotine dependence; Z85.118 Personal history of other malignant neoplasm of bronchus and lung; Z79.899 Other long term (current) drug therapy
CPT/HCPCS: 83735; 93005; 94760; 96365; 96366; 96368; J3475; J3480

== ENCOUNTER 2022-02-21 14:02 | Outpatient (CLI) | payer MEDICARE ==
[2022-02-21 14:24] LABS: Anion Gap 15 mmol/L (10-20); BUN (Urea Nitrogen) 5 mg/dL (8.4-25.7); Calc. Creatinine Clearance 0 mL/min (70-130); Calcium 8.7 mg/dL (7.8-10.44); Carbon Dioxide 25 mmol/L (23-31); Chloride 107 mmol/L (98-107); Estimated GFR 69; Glucose 182 mg/dL (83-110); Sodium 144 mmol/L (136-145)
[2022-02-21 14:46] LABS: Potassium 2.8 mmol/L (3.5-5.1)
== END 2022-02-21 14:03 | disposition home or self-care (01) ==
LOC: MADLABBHPM 14:02
PROVIDERS: ATTEND Family Medicine
DX: E87.6 Hypokalemia (principal)
CPT/HCPCS: 80048

== ENCOUNTER 2022-09-08 12:35 | Emergency (ER) | payer MEDICARE ==
[2022-09-08] MEDS ORDERED: Nitroglycerin 2% Ointment 1 INCH/1 GM Packet ONE ×2 (13:10→13:12)
[2022-09-08] MEDS ORDERED: Furosemide 40 MG/4 ML VIAL ONE (13:10)
[2022-09-08 13:40] LABS: #Lymphocytes 0.9 thou/uL (1.20-3.40); #Monocytes 0.2 thou/uL (0.11-0.59); #Neutrophils 4.5 thou/uL (1.40-6.50); %Basophils 0.7 % (0.0-1.0); %Eosinophils 0.9 % (0.0-10.0); %Lymphocytes 16.5 % (21.0-51.0); %Monocytes 3.5 % (0.0-10.0); %Neutrophils 78.4 % (42.0-75.0); Hemoglobin 11.7 g/dL (14.0-18.0); Mean Corpuscular HGB CONC 31.2 g/dL (32.0-36.0); Mean Corpuscular Hemoglobin 27.5 pg (27.0-31.0); Mean Platelet Volume 7.7 fL (7.4-10.4); Platelet Count 127 10x3/uL (130-400); RBC Distribution Width 17.2 % (11.5-14.5); Red Blood Cell (RBC) Count 4.25 mill/uL (4.70-6.10); White Blood Cell (WBC) Count 5.7 10x3/uL (4.8-10.8)
[2022-09-08 13:57] LABS: ALT (SGPT) 22 U/L (8-55); AST (SGOT) 23 U/L (5-34); Albumin 3.4 g/dL (3.4-4.8); Alkaline Phosphatase 57 U/L (40-110); Anion Gap 16 mmol/L (10-20); BUN (Urea Nitrogen) 25 mg/dL (8.4-25.7); Bilirubin, Total 0.7 mg/dL (0.2-1.2); Calc. Creatinine Clearance 0 mL/min (70-130); Calcium 9.5 mg/dL (7.8-10.44); Carbon Dioxide 19 mmol/L (23-31); Chloride 107 mmol/L (98-107); Estimated GFR 51; Globulin 3.2 g/dL (2.4-3.5); Glucose 159 mg/dL (83-110); Potassium 3.9 mmol/L (3.5-5.1); Protein, Total 6.6 g/dL (5.8-8.1); Sodium 138 mmol/L (136-145)
== END 2022-09-08 18:16 | disposition short-term general hospital (02) ==
LOC: MADERS 12:35
DX: R06.09 Other forms of dyspnea (principal); E11.9 Type 2 diabetes mellitus without complications; E78.5 Hyperlipidemia, unspecified; I10 Essential (primary) hypertension; J44.9 Chronic obstructive pulmonary disease, unspecified; Z79.899 Other long term (current) drug therapy
CPT/HCPCS: 36415; 71045; 80053; 83605; 83880; 84484; 85025; 93005; 96374; J1940

== ENCOUNTER 2023-03-08 12:04 | Outpatient (CLI) | payer MEDICARE ==
[2023-03-08 13:17] LABS: Hematocrit 28.4 % (42.0-52.0); Hemoglobin 8.9 g/dL (14.0-18.0); Mean Corpuscular HGB CONC 31.3 g/dL (32.0-36.0); Mean Corpuscular Hemoglobin 30.3 pg (27.0-31.0); Mean Corpuscular Volume 96.7 fl (78.0-98.0); Mean Platelet Volume 6.4 fL (7.4-10.4); Platelet Count 202 10x3/uL (130-400); RBC Distribution Width 15.7 % (11.5-14.5); Red Blood Cell (RBC) Count 2.94 mill/uL (4.70-6.10); White Blood Cell (WBC) Count 5.8 10x3/uL (4.8-10.8)
[2023-03-08 13:18] LABS: Anisocytosis SLIGHT = 6-15 cells (100X) (0-5/hpf); Band 3 % (5-11); Eosinophils 2 % (0-10); Hypochromia SLIGHT = 6-15 cells (100X) (0-5/hpf); Lymphocytes 18 % (21-51); MDiff Complete? YES; Manual Diff?? YES; Monocytes 7 % (0-10); Neutrophil 70 % (42-75); Platelet Adequacy Comment Appears Adequate
[2023-03-08 13:27] LABS: Thyroid Stimulating Hormone 1.2876 uIU/mL (0.35-4.94)
[2023-03-08 14:47] LABS: ALT (SGPT) 9 U/L (8-55); AST (SGOT) 15 U/L (5-34); Albumin 2.8 g/dL (3.4-4.8); Alkaline Phosphatase 72 U/L (40-110); Anion Gap 16 mmol/L (10-20); BUN (Urea Nitrogen) 5 mg/dL (8.4-25.7); Bilirubin, Direct 0.1 mg/dL (0.1-0.3); Bilirubin, Total Less than 0.2 mg/dL (0.2-1.2); Calc. Creatinine Clearance 0 mL/min (70-130); Calcium 8.5 mg/dL (7.8-10.44); Carbon Dioxide 20 mmol/L (23-31); Chloride 111 mmol/L (98-107); Estimated GFR 73; Globulin 3.4 g/dL (2.4-3.5); Glucose 140 mg/dL (83-110); Phosphorus 2.6 mg/dL (2.3-4.7); Potassium 3.3 mmol/L (3.5-5.1); Protein, Total 6.2 g/dL (5.8-8.1); Sodium 144 mmol/L (136-145); Uric Acid 4.2 mg/dL (3.5-7.2)
[2023-03-08 17:51] LABS: T4 5.97 ug/dL (4.87-11.72)
[2023-03-09 22:25] LABS: LDH 221 U/L (125-220)
== END 2023-03-08 12:05 | disposition home or self-care (01) ==
LOC: MADRAD 12:04
PROVIDERS: ATTEND Family Medicine
DX: J18.9 Pneumonia, unspecified organism (principal); N39.0 Urinary tract infection, site not specified; R97.20 Elevated prostate specific antigen [PSA]; C34.02 Malignant neoplasm of left main bronchus; D50.0 Iron deficiency anemia secondary to blood loss (chronic)
CPT/HCPCS: 36415; 71046; 80053; 82248; 83615; 84100; 84436; 84443; 84550; 85025

== ENCOUNTER 2023-04-13 16:43 | Emergency (ER) | payer MEDICARE ==
[2023-04-13] MEDS ORDERED: Fleet Saline Enema 133 ML BOT ONE (17:18)
== END 2023-04-13 17:50 | disposition home or self-care (01) ==
LOC: MADERS 16:43
DX: K56.41 Fecal impaction (principal); E11.9 Type 2 diabetes mellitus without complications; E78.5 Hyperlipidemia, unspecified; I10 Essential (primary) hypertension; J44.9 Chronic obstructive pulmonary disease, unspecified; Z87.891 Personal history of nicotine dependence; Z79.899 Other long term (current) drug therapy
CPT/HCPCS: 94760